=== PATIENT | male | born 1950 | race Caucasian/White ===

== ENCOUNTER → 2016-10-27 | Outpatient (CLI) | payer MEDICARE, OTHER ==
--- NOTE | 2016-10-27 10:16 | PCVCIMAG ---
APPROVED REPORT Study performed: 10/27/2016 08:54:27 EXAM: Comprehensive 2D, Doppler, and color-flow Echocardiogram Status: routine Other Information Study Quality: Good Indications Aortic Aneurysm, Paroxysmal V-Tach 2D Dimensions LVEF(%): 56.53 (>50%) IVSd: 10.79 (7-11mm) LVDd: 35.08 mm PWd: 9.99 (7-11mm)Ascending Ao: 44.07 (22-36mm) LVDs: 24.96 (25-40mm) Left Atrium: 34.23 (27-40mm) Aortic Root: 37.62 mm LV Single Plane 4CH: 67.93 % LV Single Plane 2CH: 67.57 %Kerr's LVEF: 67.75 % Biplane EF: 68.1 % Volumes Left Atrial Volume (Systole) Single Plane 4CH: 54.86 mLSingle Plane 2CH: 76.27 mL LA ESV Index: 33.00 mL/m2 Aortic Valve AoV Peak Emery.: 1.45 m/s AO Peak Gr.: 9.67 mmHgLVOT Max P.61 mmHg LVOT Max V: 1.07 m/s Mitral Valve E/A Ratio: 1.4 MV Decel. Time: 177.51 ms MV E Max Emery.: 0.88 m/s MV A Emery.: 0.63 m/s MV PHT: 51.48 ms IVRT: 96.89 ms TDI E/Lateral E': 15.00E/Medial E': 12.00 Pulmonary Valve PV Peak Emery.: 0.88 m/sPV Peak Gr.: 3.13 mmHg Pulmonary Vein P Vein S: 0.34 m/sP Vein A: 0.51 m/s P Vein D: 0.58 m/sP Vein A Dur.: 166.1 msec P Vein S/D Ratio: 0.59 Tricuspid Valve TR Peak Emery.: 2.19 m/s TR Peak Gr.: 19.13 mmHg Left Ventricle The left ventricle is normal size. There is normal LV segmental wall motion. There is normal left ventricular wall thickness. Left ventricular systolic function is normal. The left ventricular ejection fraction is within the normal range. LVEF is 65%. Grade II diastolic dysfunction Right Ventricle The right ventricle is normal size. The right ventricular systolic function is normal. Atria The left atrium size is normal. The right atrium size is normal. Aortic Valve The aortic valve is trileaflet, mildly calcified Mild insufficiency There is no aortic valvular stenosis. Mitral Valve The mitral valve is normal in structure. There is trivial mitral valve regurgitation noted. No evidence of mitral valve stenosis. Tricuspid Valve The tricuspid valve is normal in structure. Trivial tricuspid valve regurgitation noted with PAP of 26 mmHg. Pulmonic Valve The pulmonary valve is normal in structure. There is mild-moderate pulmonic valvular regurgitation. Great Vessels Ascending Aortic root is dilated to 4.4 cm. IVC is normal in size and collapses with >50% inspiration Pericardium There is no pericardial effusion. <Conclusion> Left ventricular systolic function is normal. There is normal LV segmental wall motion. LVEF 65% The aortic valve is trileaflet, mildly calcified. Mild insufficiency, no stenosis The mitral valve is normal in structure. Tracel mitral valve regurgitation noted. Dilatation of ascending aorta 4.4cm Pulmonary artery pressure of 25mmHg There is no pericardial effusion.
== END ==
LOC: PCVCIMAG 09:14
PROVIDERS: ATTEND Internal Medicine
DX: I34.0 Nonrheumatic mitral (valve) insufficiency (principal); I07.1 Rheumatic tricuspid insufficiency; I37.1 Nonrheumatic pulmonary valve insufficiency; I71.2 Thoracic aortic aneurysm, without rupture; I47.2 Ventricular tachycardia; I71.9 Aortic aneurysm of unspecified site, without rupture; E78.5 Hyperlipidemia, unspecified; I45.10 Unspecified right bundle-branch block
CPT/HCPCS: 80061; 93005; 93306; G0463

== ENCOUNTER → 2017-06-02 | Outpatient (CLI) | payer MEDICARE, OTHER | END | disposition home or self-care (01) | LOC: PCVCCLINIC 13:25 | DX: I25.10 Atherosclerotic heart disease of native coronary artery without angina pectoris (principal); I71.2 Thoracic aortic aneurysm, without rupture; E78.5 Hyperlipidemia, unspecified; K51.819 Other ulcerative colitis with unspecified complications; R94.31 Abnormal electrocardiogram [ECG] [EKG]; I45.10 Unspecified right bundle-branch block; Z79.82 Long term (current) use of aspirin; Z79.899 Other long term (current) drug therapy | CPT/HCPCS: 93005; G0463 ==

== ENCOUNTER → 2017-11-10 | Outpatient (CLI) | payer MEDICARE, OTHER | END | disposition home or self-care (01) | LOC: PCVCCLINIC 14:16 | DX: I25.10 Atherosclerotic heart disease of native coronary artery without angina pectoris (principal); I71.2 Thoracic aortic aneurysm, without rupture; E78.5 Hyperlipidemia, unspecified; K51.819 Other ulcerative colitis with unspecified complications; R94.31 Abnormal electrocardiogram [ECG] [EKG]; Z79.82 Long term (current) use of aspirin; Z79.899 Other long term (current) drug therapy | CPT/HCPCS: 80061; 93005; G0463 ==

== ENCOUNTER → 2018-03-13 | Outpatient (CLI) | payer MEDICARE, OTHER ==
[~2018-03-13] MED LIST: REGADENOSON 0.4 MG/5 ML DISP.SYRIN. IV ONE
--- NOTE | 2018-03-13 12:21 | PCVCIMAG ---
APPROVED REPORT Imaging Protocol: Rest Tc-99m/Stress Tc-99m 1 day Study performed: 03/13/2018 08:37:37 Indication: CAD , Dyspnea Patient Location: Out-Patient Stress Nurse: Vania Kelly RN, Marlin Casper RN [place] Tech:Daisy LAZARO BarronMT Ht: 5 ft 7 in Wt: 176 lbs BSA: 1.91 m2 HR: 64 bpm BP: 125/74 mmHg BMI: 27.5 Medical History Medical History: Hyperlipidemia, CAD, ID, AGE, Thoracic AA Medications: ASA, Plavix, Remicade, Metoprolol, Crestor Allergies: No known drug allergies Previous Cardiac Procedures: PCI - 2018 to LAD Pretest Chest Pain Characteristics: No chest pain Exercise History: Physically active Physical Disabilities: Knee - arthritis Meds Held (24 hrs): Metoprolol Resting Data Rest SPECT myocardial perfusion imaging was performed in supine position 45 minutes following the intravenous injection of 10.3 mCi of Tc-99m Sestamibi. Time of rest injection: 809 Date: 03/13/2018 Administration Route: IV Administration Site: Right Hand Pharmacologic Stress Pharmacologic stress test was performed by injecting Regadenoson 0.4 mg IV push over 10-15 seconds immediately followed by the intravenous injection of 34.7 mCi of Tc-99m Sestamibi. Time of stress injection: 914 Date: 03/13/2018 Administration Route: IV Administration Site: Right Hand Gated Stress SPECT was performed 45 minutes after stress injection. The images were gated to evaluate regional wall motion and calculate left ventricular ejection fraction. Stress Test Details Stress Test: Pharmacologic stress was paired with low level exercise. Reason for pharmacologic stress test: physical limitation, knees. HRMax Heart Rate (APMHR): 151 bpm Resting HR: 64 bpmTarget HR (85% APMHR): 128 bpm Max HR Achieved: 93 bpm % of APMHR: 61 Recovery HR: 74 bpm BP Resting BP: 125/74 mmHg Recovery BP: 140/64 mmHg ECG Resting ECG: Sinus Rhythm, RBBB Stress ECG: Sinus Rhythm, RBBB ST Change: None Maximum ST Deviation: 0 mm Arrhythmia: None Recovery ECG: Sinus Rhythm, RBBB Recovery ST Change: None Recovery ST Deviation: 0 mm Recovery Arrhythmia: None Clinical Reason for Termination: Completed protocol Stress Symptoms: Leg Fatigue, Lightheaded Exercise duration: 4 min 00 sec Exercise capacity: 1.6 METs Symptoms resolved during recovery. Stress ECG Conclusion ECG: Non-ischemic Clinical: Non-ischemic Study Quality Study: Good Study Data Post stress, the left ventricular ejection was 64%.. SSS: 0 SRS: 0 SDS: 0 TID = 0.78. Perfusion No evidence of stress induced ischemia or prior myocardial infarction. Wall Motion Normal left ventricular size and function with no regional wall motion abnormalities. Nuclear Conclusion No evidence of stress induced ischemia or prior myocardial infarction. Normal left ventricular size and function with no regional wall motion abnormalities. Post stress, the left ventricular ejection was 64%. No prior study available for comparison. Interpreted by: Jose Amezcua MD Electronically Approved: 03/13/2018 10:56:00 <Conclusion> ECG: Non-ischemic Clinical: Non-ischemic
== END | disposition home or self-care (01) ==
LOC: PCVCIMAG 07:46
PROVIDERS: ATTEND Internal Medicine
DX: I25.10 Atherosclerotic heart disease of native coronary artery without angina pectoris (principal); I71.2 Thoracic aortic aneurysm, without rupture; E78.5 Hyperlipidemia, unspecified; K51.819 Other ulcerative colitis with unspecified complications; R06.09 Other forms of dyspnea; I21.9 Acute myocardial infarction, unspecified; Z79.82 Long term (current) use of aspirin
CPT/HCPCS: 78452; 93005; 93017; A9500; G0463; J2785

== ENCOUNTER → 2018-09-26 | Outpatient (CLI) | payer MEDICARE, OTHER ==
--- NOTE | 2018-09-26 15:24 | PCVCIMAG ---
APPROVED REPORT Study performed: 09/26/2018 13:29:20 EXAM: Comprehensive 2D, Doppler, and color-flow Echocardiogram Patient Location: Echo lab Room #: 2Status: routine BSA: 1.91 HR: 58 bpmBP: 128/70 mmHg Rhythm: Bradycardia Other Information Study Quality: Good Indications CAD S/P ID, Stent to prox LAD, Asc AO dilated 2D Dimensions IVSd: 10.06 (7-11mm)LVOT Diam: 22.97 (18-24mm) LVDd: 36.66 mm PWd: 8.24 (7-11mm)Ascending Ao: 39.40 (22-36mm) LVDs: 21.18 (25-40mm) Left Atrium: 21.06 (27-40mm) Aortic Root: 42.32 mm LV Single Plane 4CH: 70.44 % LV Single Plane 2CH: 66.88 % Biplane EF: 67.9 % Volumes Left Atrial Volume (Systole) Single Plane 4CH: 46.45 mLSingle Plane 2CH: 46.41 mL Biplane LA Volume: 48.00 mLLA ESV Index: 25.00 mL/m2 Aortic Valve AoV Peak Emery.: 1.71 m/s AO Peak Gr.: 11.65 mmHgLVOT Max P.59 mmHg LVOT Max V: 0.95 m/s ANIYA Vmax: 2.30 cm2 Mitral Valve E/A Ratio: 0.9 MV Decel. Time: 308.14 ms MV E Max Emery.: 0.70 m/s MV A Emery.: 0.74 m/s IVRT: 114.19 ms TDI E/Lateral E': 10.00E/Medial E': 14.00 Medial E' Emery.: 0.05 m/s Lateral E' Emery.: 0.07 m/s Pulmonary Valve PV Peak Emery.: 0.83 m/sPV Peak Gr.: 2.73 mmHg Pulmonary Vein P Vein S: 0.62 m/sP Vein A: 0.32 m/s P Vein D: 0.41 m/sP Vein A Dur.: 110.7 msec P Vein S/D Ratio: 1.51 Tricuspid Valve TR Peak Emery.: 2.08 m/s TR Peak Gr.: 17.27 mmHg TV Vmax: 0.49 m/sPA Pressure: 24.00 mmHg Left Ventricle The left ventricle is normal size. There is normal LV segmental wall motion. There is normal left ventricular wall thickness. Left ventricular systolic function is normal. The left ventricular ejection fraction is within the normal range. LVEF is 65-70%. Mild diastolic dysfunction is present (impaired relaxation pattern). Right Ventricle The right ventricle is normal size. The right ventricular systolic function is normal. Atria The left atrium size is normal. The right atrium size is normal. Aortic Valve The aortic valve is mildly sclerotic Mild aortic regurgitation. There is no aortic valvular stenosis. Mitral Valve The mitral valve is normal in structure. There is no mitral valve regurgitation noted. No evidence of mitral valve stenosis. Tricuspid Valve The tricuspid valve is normal in structure. Trace tricuspid regurgitation. Pulmonic Valve The pulmonary valve is normal in structure. There is no pulmonic valvular regurgitation. Great Vessels Aortic root is mildly dilated. The ascending aorta is dilated (4.2cm). IVC is normal in size and collapses >50% with inspiration. Pericardium There is no pericardial effusion. There is no pleural effusion. <Conclusion> Left ventricular systolic function is normal. There is normal LV segmental wall motion. LVEF is 65-70%. Mild diastolic dysfunction The aortic valve is mildly sclerotic. Mild aortic regurgitation, no stenosis. The mitral valve is normal in structure. No mitral valve regurgitation. The ascending aorta is dilated (4.2cm). There is no pericardial effusion.
== END | disposition home or self-care (01) ==
LOC: PCVCIMAG 13:10
PROVIDERS: ATTEND Internal Medicine
DX: I35.1 Nonrheumatic aortic (valve) insufficiency (principal); I35.8 Other nonrheumatic aortic valve disorders; I25.10 Atherosclerotic heart disease of native coronary artery without angina pectoris; I71.2 Thoracic aortic aneurysm, without rupture; K51.819 Other ulcerative colitis with unspecified complications; Z79.82 Long term (current) use of aspirin
CPT/HCPCS: 36415; 80061; 93005; 93306; G0463

== ENCOUNTER → 2019-04-05 | Outpatient (CLI) | payer MEDICARE, OTHER ==
--- NOTE | 2019-04-05 10:50 | PCVCIMAG ---
APPROVED REPORT Study performed: 04/05/2019 10:00:49 EXAM: Comprehensive 2D, Doppler, and color-flow Echocardiogram Patient Location: Echo lab Status: routine BSA: 1.92 HR: 56 bpmBP: 130/60 mmHg Rhythm: NSR Other Information Study Quality: Good Indications CAD Stent, Thoracic Aortic Aneurysm 2D Dimensions IVSd: 14.45 (7-11mm)LVOT Diam: 22.15 (18-24mm) LVDd: 34.45 mm PWd: 11.08 (7-11mm)Ascending Ao: 44.46 (22-36mm) LVDs: 32.38 (25-40mm) Left Atrium: 32.29 (27-40mm) Aortic Root: 40.91 mm LV Single Plane 4CH: 56.24 % LV Single Plane 2CH: 52.61 % Biplane EF: 55.5 % Volumes Left Atrial Volume (Systole) Single Plane 4CH: 33.96 mLSingle Plane 2CH: 48.21 mL LA ESV Index: 22.00 mL/m2 Aortic Valve AoV Peak Emery.: 1.54 m/s AO Peak Gr.: 9.47 mmHgLVOT Max P.27 mmHg LVOT Max V: 1.03 m/s ANIYA Vmax: 2.59 cm2 AI Vmax: 3.19 m/s AI Rawlins: 1.56 m/s2 AI PHT: 591.59 ms Mitral Valve E/A Ratio: 0.9 MV Decel. Time: 249.35 ms MV E Max Emery.: 0.81 m/s MV A Emery.: 0.86 m/s IVRT: 121.11 ms TDI E/Lateral E': 9.00E/Medial E': 13.50 Medial E' Emery.: 0.06 m/s Lateral E' Emery.: 0.09 m/s Pulmonary Valve PV Peak Gr.: 2.01 mmHg Pulmonary Vein P Vein S: 0.51 m/sP Vein A: 0.38 m/s P Vein D: 0.42 m/sP Vein A Dur.: 131.5 msec P Vein S/D Ratio: 1.21 Tricuspid Valve TR Peak Emery.: 1.70 m/s TR Peak Gr.: 11.62 mmHg Left Ventricle The left ventricle is normal size. There is normal LV segmental wall motion. Borderline concentric left ventricular hypertrophy. Left ventricular systolic function is normal. The left ventricular ejection fraction is within the normal range. LVEF is 65-70%. Mild diastolic dysfunction is present (impaired relaxation pattern). Right Ventricle The right ventricle is normal size. The right ventricular systolic function is normal. Atria The left atrium size is normal. The right atrium size is normal. Aortic Valve The Aortic valve is sclerotic. Trace aortic regurgitation. There is no aortic valvular stenosis. Mitral Valve The mitral valve is normal in structure. Trace mitral regurgitation. No evidence of mitral valve stenosis. Tricuspid Valve The tricuspid valve is normal in structure. Trace tricuspid regurgitation. Pulmonic Valve The pulmonary valve is normal in structure. There is no pulmonic valvular regurgitation. Great Vessels The aortic root is normal in size. The ascending aorta is dilated (4.6cm). IVC is normal in size and collapses >50% with inspiration. Pericardium There is no pericardial effusion. <Conclusion> Left ventricular systolic function is normal. There is normal LV segmental wall motion. LVEF is 65-70%. Mild diastolic dysfunction The aortic valve is sclerotic. Trace aortic regurgitation, no stenosis. The mitral valve is normal in structure. Trace mitral regurgitation. Pulmonary artery systolic pressure could not be reliably ascertained The ascending aorta is dilated (4.6cm). There is no pericardial effusion.
== END | disposition home or self-care (01) ==
LOC: PCVCIMAG 09:53
PROVIDERS: ATTEND Internal Medicine
DX: I35.8 Other nonrheumatic aortic valve disorders (principal); I25.10 Atherosclerotic heart disease of native coronary artery without angina pectoris; E78.1 Pure hyperglyceridemia; I71.2 Thoracic aortic aneurysm, without rupture; E78.5 Hyperlipidemia, unspecified; I45.10 Unspecified right bundle-branch block; K51.819 Other ulcerative colitis with unspecified complications; K51.90 Ulcerative colitis, unspecified, without complications; Z95.1 Presence of aortocoronary bypass graft; Z82.49 Family history of ischemic heart disease and other diseases of the circulatory system; Z79.82 Long term (current) use of aspirin
CPT/HCPCS: 36415; 80061; 93005; 93306; G0463